=== PATIENT | female | born 1980 | race Caucasian/White ===

== ENCOUNTER 2024-03-02 12:18 | Emergency (ER) | payer OTHER, SELFPAY ==
[2024-03-02 12:32] VITALS: BP 134/83
--- NOTE | 2024-03-02 12:33 | ED.GENMED ---
ED Provider Triage
<FADY Mott - Last Filed: 03/02/24 14:32>
-
Patient seen by provider in Triage?: Seen in Triage
Attestation: A medical screening examination has been initiated by a qualified medical provider. Based on the assessment performed at this time, it has been determined that an emergent medical condition may exist and the patient has been informed
that further medical evaluation and possible additional diagnostic testing may be needed.
HPI: 44 yr old female presents to the ED with heavy vaginal bleeding. Patient has a history of heavy vaginal bleeding and for that reason has an IUD (IUD August 2023) however today started with heavier bleeding than normal. Denies any pain + mild
cramping. Pt reports she bled through a tampon in minutes .
GENERAL: Alert , in no apparent distress
EYE: No visual abnormalities.
NECK: Trachea midline
ENT: No visible abnormalities.
LUNGS: No acute respiratory distress
NEUROLOGICAL: Alert and oriented
SKIN: Skin intact. No visible changes.
MUSCULOSKELETAL: Moving extremities normally
PSYCH: Normal and appropriate interaction.
This is a medical evaluation conducted in person to initiate diagnostic evaluation and provide initial therapeutics. Please see further documentation by the treating clinician.
History of Present Illness
<FADY Mott - Last Filed: 03/02/24 14:32>
General
Chief Complaint: Vaginal Bleeding
Time Seen by Provider: 03/02/24 14:02
<Gladys Berg PA-C - Last Filed: 03/02/24 17:42>
General
Source: patient
Exam Limitations: none
Nursing documentation reviewed up to this point in time: agreed with
History of Present Illness
History of Present Illness:
This is a 44-year-old female with a past medical history of abnormal vaginal bleeding presents emergency department today with concerns heavy bleeding. Patient reports that she had a Mirena IUD placed a few months ago for heavy bleeding and
irregular periods. Patient reports that she continues to have irregular bleeding and reports that this has not controlled her bleeding as of yet. Patient does not recall the last time she had regular bleeding. Patient reports that yesterday, she
started to develop bleeding which at first seemed typical for her but then today, she states that the bleeding got very heavy and states that it has been the most heavy bleeding that she is ever had. She denies dizziness or lightheadedness. She
denies syncopal episodes. She states that she is going through 1 tampon every 20 minutes. Patient denies any lower abdominal pain or cramping, denies any burning with urination, denies any fevers or chills, cough or cold-like symptoms, chest pain
or shortness of breath.
Past History
<FADY Mott - Last Filed: 03/02/24 14:32>
Past History
ED Past Medical History: Other (Ocular migraines)
ED Past Surgical History:
Social History
Tobacco: Non-smoker
Review of Systems
<Gladys Berg PA-C - Last Filed: 03/02/24 17:42>
Review of Systems
All Other Systems: ROS reviewed and negative except as documented in HPI and ROS
Phy Exam
<Gladys Berg PA-C - Last Filed: 03/02/24 17:42>
Physical Exam
Physical Exam:
General: Patient is well appearing and in no acute distress; non-toxic
Skin: Warm and dry, no rashes or lesions
Head: Normocephalic, atraumatic
Eyes: Sclera non-icteric. EOMs intact. PERRLA.
Cardiac: Regular rate
Peripheral Vascular: No lower extremity swelling or edema
Pulm: Normal respiratory effort
Abdomen: No abdominal tenderness to palpation, no palpable masses
Genitourinary: Deferred
Neuro: CN II-XII intact, no focal neurologic deficits.
Psychiatric: Appropriate mood and affect.
Course
<FADY Mott - Last Filed: 03/02/24 14:32>
Orders/Labs/Results
Orders:
Orders
03/02/24 12:36
Test Result ONCE
US Pelvis Only (non-obstetric) Urgent
Comment:
Reason For Exam: heavy vaginal bleeding
03/02/24 12:42
Complete Blood Count/With Diff Urgent
Comprehensive Metabolic Panel Urgent
HCG, Serum Qualitative Screen Urgent
Abnormal Lab Results
03/02/24
12:42
RBC 4.15 L 10^6/uL
(4.20-5.40)
MCH 32.5 H pg
(27.0-31.0)
Alkaline Phosphatase 34 L U/L
(38-126)
03/02/24 12:42
03/02/24 12:42
Vital Signs
Initial and Last Documented VS:
Initial Vital Signs
Temp Pulse Resp BP Pulse Ox
97.8 F 86 18 134/83 100
03/02/24 12:32 03/02/24 12:32 03/02/24 12:32 03/02/24 12:32 03/02/24 12:32
Last Documented Vital Signs
Temp Pulse Resp BP Pulse Ox
97.8 F 86 18 134/83 100
03/02/24 12:32 03/02/24 12:32 03/02/24 12:32 03/02/24 12:32 03/02/24 12:32
<Gladys Berg PA-C - Last Filed: 03/02/24 17:42>
Orders/Labs/Results
Orders:
Orders
03/02/24 12:36
Test Result ONCE
US Pelvis Only (non-obstetric) Urgent
Comment:
Reason For Exam: heavy vaginal bleeding
12/17/24 12:42
Complete Blood Count/With Diff Urgent
Comprehensive Metabolic Panel Urgent
HCG, Serum Qualitative Screen Urgent
Abnormal Lab Results
03/02/24
12:42
RBC 4.15 L 10^6/uL
(4.20-5.40)
MCH 32.5 H pg
(27.0-31.0)
Alkaline Phosphatase 34 L U/L
(38-126)
03/02/24 12:42
03/02/24 12:42
Vital Signs
Initial and Last Documented VS:
Initial Vital Signs
Temp Pulse Resp BP Pulse Ox
97.8 F 86 18 134/83 100
03/02/24 12:32 03/02/24 12:32 03/02/24 12:32 03/02/24 12:32 03/02/24 12:32
Last Documented Vital Signs
Temp Pulse Resp BP Pulse Ox
97.8 F 86 18 134/83 100
03/02/24 12:32 03/02/24 12:32 03/02/24 12:32 03/02/24 12:32 03/02/24 12:32
Yamiletlt;Gladys Berg PA-C - Last Filed: 03/02/24 17:42>
MDM/Problems Addressed
Differential Diagnosis Includes:
see below
MDM/Problems Addressed:
NUMBER AND COMPLEXITY OF PROBLEMS ADDRESSED AT THE ENCOUNTER
� Chronic conditions affecting care: n/a
� Acute Exacerbation and/or Progression of Chronic Illness: abnormal uterine bleeding
� Differential Diagnosis includes: premenopause, menstruation, IUD migration, ectopic , uterine fibroid
AMOUNT AND/OR COMPLEXITY OF DATA TO BE REVIEWED AND ANALYZED
� I performed an independent evaluation of and my interpretation is:
Laboratory Studies: H+H stable
Other:
� Review of other/old records: reviewed previous ER physician documentation from 04/27/22, patient seen for right facial pain
� Clinical information was obtained by an independent historian: n/a
� Prescriptions/Medications Considered but not given: considered Lysteda to help control bleeding however patient has a ronald IUD in place which may increase risk of blood clots
� Further testing considered but not performed: n/a
RISK OF COMPLICATIONS AND/OR MORBIDITY OR MORTALITY OF PATIENT MANAGEMENT
� Social determinants of health affecting care: none
� Discussion with other providers: ER attending
� Escalation of care including admission/observation vs risk of discharge considered:
This is a 44-year-old female with a past medical history of abnormal vaginal bleeding presents emergency department today with concerns heavy bleeding. She has had this for multiple months but reports that within the past day it has gotten a lot
worse. Patient reports that she is going through 1 tampon every 20 minutes. She has never had bleeding this severe before. She has no pain, no pelvic tenderness. She is well-appearing on exam. Her vital signs are stable. She is not feel dizzy
or lightheaded. Her hemoglobin is stable. She is not , no concern for ectopic . Suspect premenopausal syndrome. Her ultrasound reveals no intrauterine mass, does show that there is an intrauterine contraceptive device in place
otherwise no abnormal findings. On reassessment, patient reports that her bleeding has slowed down significantly. Patient states that she will schedule follow-up appointment with her [facility] at [place]. Patient stable for discharge
<Gladys Berg PA-C - Last Filed: 03/02/24 17:42>
*Critical Care Note
Total Time (30-74mins, 75-104mins- exclusive of procedures): Not Applicable
ED Attending Note
<FADY Mott - Last Filed: 03/02/24 14:32>
-
Portions of this chart may have been created with voice recognition software.� Occasional wrong word or��sound alike� substitutions may have occurred due to the inherent limitations of voice recognition software.
Discharge Plan
Departure
Patient Disposition: Home (Routine Discharge)
Date of Disposition: 03/02/24
Time of Disposition: 17:07
Patient with high blood pressure during this ER visit?: Yes
Condition: Good
Discharge Problem:
Abnormal uterine bleeding (AUB)
Instructions: Bleeding Between Periods, BLOOD PRESSURE
Prescriptions:
No Action
prednisone 20 mg tablet
20 mg PO BID Qty: 10 0RF
Referrals:
NONE,* [Family Provider] -
Activity Restrictions/Additional Instructions:
Please call your OBGYN for follow up appointment, copy of your ultrasound and blood work is in your discharge packet.
PLEASE RETURN TO EMERGENCY DEPARTMENT SHOULD YOU EXPERIENCE DIZZINESS, LIGHTHEADEDNESS, ABDOMINAL PAIN, INTRACTABLE NAUSEA OR VOMITING, CHEST PAIN, SHORTNESS OF BREATH, OR ANY OTHER SIGNS OR SYMPTOMS WORRISOME TO YOU.
Interventions
Interventions:
*Risk Screen - Suicide Last Done: 03/02/24 12:32
*General Assessment Last Done: 03/02/24 12:32
*Neglect/Abuse Screening Last Done: 03/02/24 12:32
*ED COVID-19 Vaccine History Last Done: 03/02/24 12:32
*Nursing Disposition Last Done: 03/02/24 17:23
ED-Female Genitourinary Assessment Last Done: 03/02/24 14:13
Discharge Date and Time
Discharge Date/Time: 03/02/24 17:23
Print Language: [place]
[2024-03-02 12:54] LABS: % Basophils 0.6 % (0-2); % Eosinophils 1.1 % (0-6); % Immature Granulocytes 0.2 % (0-0.5); % Lymphocytes 37.2 % (20.5-51.1); % Monocytes 7.7 % (1.7-9.3); % Neutrophils 53.2 % (42.2-75.2); Absolute Eosinophils 0.1 10^3/uL (0-0.7); Absolute Monocytes 0.4 10^3/uL (0.1-0.6); Absolute Neutrophils 2.9 10^3/uL (1.4-6.5); Hemoglobin 13.5 g/dL (12.0-16.0); Mean Corp Hgb Conc. 34.6 g/dL (33.0-37.0); Mean Corpuscular Hgb 32.5 pg (27.0-31.0); Mean Platelet Volume 9.5 fL (7.4-10.4); Nucleated Red Blood Cells % 0 %; Platelet Count 245 10^3/uL (130-400); Red Blood Cell Count 4.15 10^6/uL (4.20-5.40); Red Cell Dist. Width 12.2 % (11.5-14.5); White Blood Cell Count 5.5 10^3/uL (4.8-10.8)
[2024-03-02 13:18] LABS: HCG, Serum Qualitative Screen Negative
[2024-03-02 13:19] LABS: ALT (SGPT) 17 U/L (0-35); AST (SGOT) 25 U/L (14-36); Albumin 4.6 g/dl (3.5-5.0); Alkaline Phosphatase 34 U/L (38-126); Blood Urea Nitrogen 12 mg/dl (7-17); Calcium 9.3 mg/dl (8.4-10.2); Carbon Dioxide 24 mmol/L (22-30); Chloride 105 mmol/L (98-107); Glucose 86 mg/dl (70-99); Potassium 4.4 mmol/L (3.5-5.1); Sodium 138 mmol/L (135-145); Total Protein 7.2 g/dl (6.3-8.2); eGFR > 60.00
== END 2024-03-02 17:23 | disposition home or self-care (01) ==
LOC: EMR 12:18
PROVIDERS: Nurse Practitioner; EMERGENCY PHYSICIAN Student in an Organized Health Care Education/Training Program
DX: N93.9 Abnormal uterine and vaginal bleeding, unspecified (principal); Z97.5 Presence of (intrauterine) contraceptive device
CPT/HCPCS: 99284; 76856; 80053; 84703; 85025